=== PATIENT | female | born 1955 | race Caucasian/White ===

== ENCOUNTER → 2020-09-05 13:24 | Outpatient (CLI) | payer OTHER, SELFPAY ==
--- NOTE | ~2020-09-05 | DEXA_ITS ---
Bone Density Report Name: Dulce Mckeon Age: 64 Sex: Female Ethnicity: White Date of : 1955 Indication: postmenopausal; screening for osteoporosis; parental hip fracture; Referring Provider: Alessandra, Diana Iniguez Study: Bone densitometry was performed. Exam Date: September 05, 2020 Accession number: [id number] Bone Density: Region BMD T-score Z-score Classification AP Spine (L1-L4) 0.880 -1.5 0.4 Osteopenia Femoral Neck (Left) 0.617 -2.1 -0.5 Osteopenia Total Hip (Left) 0.776 -1.4 0.0 Osteopenia Femoral Neck (Right) 0.654 -1.8 -0.2 Osteopenia Total Hip (Right) 0.812 -1.1 0.3 Osteopenia Total Hip Mean 0.794 -1.3 0.2 Osteopenia World Health Organization criteria for BMD impression classify patients as: Normal (T-score at or above -1.0), Osteopenia (T-score between -1.0 and -2.5), or Osteoporosis (T-score at or below -2.5). 10-year Fracture Risk(1): Major Osteoporotic Fracture 19% Hip Fracture 2.5% Reported Risk Factors: [place] (), Neck BMD=0.617, BMI=22.7, parental fracture (1) FRAX(R) Version 3.08. Fracture probability calculated for an untreated patient. Fracture probability may be lower if the patient has received treatment. Clinical Information Provided by Patient: Parent has had a hip fracture Has used the following medications: Vitamin D, Calcium, MTV Patient maximum height was 64 Menopause Age: 50 No regular weight bearing exercise Drinks caffeinated beverages Onset of menses at age 11 Number of children 0 Impression: The patient has low bone mass, based on the Left Femoral Neck T-score. The patient has an estimated ten-year risk of hip fracture of 2.5% and an estimated ten-year risk of major fracture of 19%, based on the WHO FRAX algorithm. The patient has risk factors, including: parental hip fracture. Discussion: BONE DENSITY IS LOW AT ONE OR MORE SKELETAL SITES. This patient's lowest T-score is low at one or more skeletal sites. It meets the World Health Organization's (WHO) criteria for ?low bone mass? (T-score between -1.0 and -2.5). The patient's 10-year risk of fracture as calculated by FRAX is less than the threshold where pharmacological therapy is recommended by the National Osteoporosis Foundation (NOF). However, all treatment decisions require clinical judgment and consideration of individual patient factors, including patient preferences, comorbidities, previous drug use, risk factors not captured in the FRAX model (e.g., frailty, falls, vitamin D deficiency, increased bone turnover, interval significant decline in bone density) and possible under or overestimation of fracture risk by FRAX. The patient should follow a healthful lifestyle (good nutrition with adequate calcium and vitamin D, and appropriate weight-bearing exercise). Follow-Up: Consider repeating
--- NOTE | ~2020-09-05 | MM_ITS ---
EXAMINATION: MM screening [facility] BI w khari HISTORY: Screening mammogram TECHNIQUE: Craniocaudal and mediolateral oblique 3-D tomosynthesis images were obtained and synthetic 2-D images were generated. CAD analysis was submitted and interpreted. COMPARISON: 02/28/2019, 02/16/2019, 12/23/2017 BREAST PARENCHYMAL COMPOSITION: There are scattered areas of fibroglandular density. FINDINGS: There is no evidence of suspicious mass, calcification, or architectural distortion to sugg est malignancy in either breast. There has been no suspicious interval change. IMPRESSION: 1. No mammographic evidence of malignancy. 2. Recommend routine screening mammography in one year. BI-RADS Category 1: Negative Reviewed, dictated and finalized at location A.
== END ==
PROVIDERS: PCP Family Medicine Adolescent Medicine; Visit Provider Physician Assistant
DX: Z12.31 Encounter for screening mammogram for malignant neoplasm of breast (principal); Z78.0 Asymptomatic menopausal state; M85.88 Other specified disorders of bone density and structure, other site; M85.852 Other specified disorders of bone density and structure, left thigh; M85.851 Other specified disorders of bone density and structure, right thigh
CPT/HCPCS: 77063; 77067; 77080

== ENCOUNTER → 2021-10-10 12:23 | Outpatient (CLI) | payer OTHER, SELFPAY ==
--- NOTE | ~2021-10-10 | MM_ITS ---
EXAMINATION: MM screening [facility] BI w khari HISTORY: Screening mammogram TECHNIQUE: Craniocaudal and mediolateral oblique 3-D tomosynthesis images were obtained and synthetic 2-D images were generated. CAD analysis was submitted and interpreted. COMPARISON: 09/05/2020 bilateral digital screening mammogram 03/03/2019 diagnostic right mammogram 02/16/2019, 12/23/2017 bilateral screening mammogram examinations BREAST PARENCHYMAL COMPOSITION: There are scattered areas of fibroglandular density. FINDINGS: There is no evidence of suspicious mass, calcification, or architectural distortion to sugg est malignancy in either breast. There has been no suspicious interval change. IMPRESSION: 1. No mammographic evidence of malignancy. 2. Recommend routine screening mammography in one year. BI-RADS Category 1: Negative Reviewed, dictated and finalized at location A. 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
== END ==
PROVIDERS: PCP Family Medicine Adolescent Medicine; Visit Provider Family Medicine Adolescent Medicine
DX: Z12.31 Encounter for screening mammogram for malignant neoplasm of breast (principal)
CPT/HCPCS: 77063; 77067

== ENCOUNTER 2022-02-01 13:29 | Outpatient (CLI) | payer OTHER, SELFPAY ==
--- NOTE | ~2022-02-01 | XR_ITS ---
EXAMINATION: XR foot LT standing 2V EXAM DATE: 02/01/2022 14:04 INDICATION: M05.79 - Rheumatoid arthritis with rheumatoid factor of m... TECHNIQUE: Frontal and lateral projections of the left foot There is no prior study for comparison . FINDINGS: There is mild to moderate left 1st metatarsophalangeal primary osteoarthritis. There are no bony erosions identified. Some periarticular osteopenia symmetric to contralateral side, which can b e an early finding of rheumatoid arthritis. There are no acute fractures or dislocations identified. There is no subcutaneous gas. The soft tissue is unremarkable. There are no radiopaque foreign ray dies. IMPRESSION: 1. Mild to moderate left 1st MTP osteoarthritis. 2. Periarticular osteopenia Reviewed, dictated and finalized at location G.
--- NOTE | ~2022-02-01 | XR_ITS ---
XR hand BI arthritis min 3V DATE: 02/01/2022 14:04 INDICATION: Rheumatoid arthritis TECHNIQUE: 4 views of each hand COMPARISON: None FINDINGS: There is polyarticular osteoarthritis involving both hands including first carpometacarpal joints, second metacarpophalangeal joints and multiple interphalangeal joints of the hands. No erosive change or chondrocalcinosis is evident. No fracture, dislocation, periosteal reaction or b one destruction. IMPRESSION: Polyarticular osteoarthritis of the hands Reviewed, dictated and finalized at location A.
--- NOTE | ~2022-02-01 | XR_ITS ---
EXAMINATION: XR foot RT standing 2V EXAM DATE: 02/01/2022 14:04 INDICATION: M05.79 - Rheumatoid arthritis with rheumatoid factor of m... TECHNIQUE: Frontal and lateral projections of the right foot standing. There is no prior study for comparison. FINDINGS: Some periarticular osteopenia, which can be an early finding of rheumatoid arthritis. There are no bony erosions identified. There are no acute right foot fractures or dislocations identified. There is no subcutaneous gas. The soft tissue is unremarkable. There are no radiopaque foreign b odies. Mild 1st metatarsophalangeal joint primary osteoarthritis. IMPRESSION: 1. Mild right 1st MTP osteoarthritis. 2. Periarticular osteopenia. Reviewed, dictated and finalized at location G.
== END 2022-02-01 13:30 | disposition home or self-care (01) ==
LOC: ANHIMG 13:33
PROVIDERS: PCP Family Medicine Adolescent Medicine; Visit Provider Internal Medicine
DX: M05.79 Rheumatoid arthritis with rheumatoid factor of multiple sites without organ or systems involvement (principal); M19.041 Primary osteoarthritis, right hand; M19.042 Primary osteoarthritis, left hand; M19.072 Primary osteoarthritis, left ankle and foot; M85.872 Other specified disorders of bone density and structure, left ankle and foot; M19.071 Primary osteoarthritis, right ankle and foot; M85.871 Other specified disorders of bone density and structure, right ankle and foot
CPT/HCPCS: 73130; 73620

== ENCOUNTER 2022-12-19 09:30 | Outpatient (CLI) | payer OTHER, SELFPAY ==
--- NOTE | ~2022-12-19 | US_ITS ---
Limited Abdominal Sonogram: Real-time sonographic imaging of the right upper quadrant was performed. Clinical History: Abnormal LFTs Findings: The liver appears normal with no evidence of mass lesion or bile duct dilatation. Main por bridgett vein demonstrates normal direction of flow. The gallbladder is well distended, and indicated 2.7 cm shadowing gallstone. No gallbladder wall thickening. The common bile duct measures 4 mm. The visu alized pancreas, aorta, and IVC are unremarkable. Impression: Cholelithiasis, as detailed above. Reviewed, dictated and finalized at location M. 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
== END 2022-12-19 09:31 | disposition home or self-care (01) ==
PROVIDERS: PCP Family Medicine Adolescent Medicine; Visit Provider Physician Assistant
DX: R74.01 Elevation of levels of liver transaminase levels (principal); K80.20 Calculus of gallbladder without cholecystitis without obstruction
CPT/HCPCS: 76705

== ENCOUNTER → 2023-01-07 13:12 | Outpatient (CLI) | payer OTHER, SELFPAY ==
--- NOTE | ~2023-01-07 | MM_ITS ---
EXAMINATION: MM screening [facility] BI w khari HISTORY: Screening mammogram TECHNIQUE: Craniocaudal and mediolateral oblique 3-D tomosynthesis images were obtained and synthetic 2-D images were generated. CAD analysis was submitted and interpreted. COMPARISON: 10/10/2021, bilateral screening mammogram examinations BREAST PARENCHYMAL COMPOSITION: There are scattered areas of fibroglandular density. FINDINGS: Occasional bilateral benign calcifications. There is no evidence of suspicious mass, calcif ication, or architectural distortion to suggest malignancy in either breast. There has been no suspic ious interval change. IMPRESSION: 1. No mammographic evidence of malignancy. 2. Recommend routine screening mammography in one year. BI-RADS Category 1: Negative Reviewed, dictated and finalized at location A. ULATION MAN
== END ==
PROVIDERS: PCP Family Medicine Adolescent Medicine; Visit Provider Family Medicine Adolescent Medicine
DX: Z12.31 Encounter for screening mammogram for malignant neoplasm of breast (principal)
CPT/HCPCS: 77063; 77067

== ENCOUNTER 2023-10-22 14:30 | Outpatient (RCR) | payer OTHER, SELFPAY ==
[2023-09-12 14:33] VITALS: BMI 21.0
[2023-09-12 15:23] VITALS: BMI 21.0
[2023-10-22 14:31] VITALS: BMI 18.3; BMI 21.0
== END 2023-11-25 12:39 | disposition home or self-care (01) ==
LOC: ANHDMC 14:30
PROVIDERS: PCP Family Medicine Adolescent Medicine; Visit Provider Family Medicine Adolescent Medicine
DX: E11.65 Type 2 diabetes mellitus with hyperglycemia (principal); Z71.89 Other specified counseling; Z71.3 Dietary counseling and surveillance
CPT/HCPCS: 97802; 97803; G0108; G0109

== ENCOUNTER 2023-12-26 14:36 | Outpatient (RCR) | payer OTHER, SELFPAY | END 2023-12-26 16:54 | disposition home or self-care (01) | LOC: ANHDMC 14:36 | PROVIDERS: PCP Family Medicine Adolescent Medicine; Visit Provider Family Medicine Adolescent Medicine | DX: E11.65 Type 2 diabetes mellitus with hyperglycemia (principal); Z71.89 Other specified counseling | CPT/HCPCS: G0109 ==

== ENCOUNTER 2024-03-12 12:35 | Outpatient (CLI) | payer OTHER, SELFPAY ==
--- NOTE | ~2024-03-12 | MM_ITS ---
EXAMINATION: MM screening [facility] BI w khari HISTORY: Screening mammogram TECHNIQUE: Craniocaudal and mediolateral oblique 3-D tomosynthesis images were obtained and synthetic 2-D images were generated. CAD analysis was submitted and interpreted. COMPARISON: January 07, 2023, October 10, 2021 bilateral screening mammogram examinations BREAST PARENCHYMAL COMPOSITION: There are scattered areas of fibroglandular density. FINDINGS: There is no evidence of suspicious mass, calcification, or architectural distortion to sugg est malignancy in either breast. There has been no suspicious interval change. IMPRESSION: 1. No mammographic evidence of malignancy. 2. Recommend routine screening mammography in one year. BI-RADS Category 1: Negative Reviewed, dictated and finalized at location A.
--- NOTE | ~2024-03-12 | DEXA_ITS ---
Bone Density Report Name: BARRON ACHARYA Age: 68 Sex: Female Ethnicity: White Date of : 1955 Indication: osteopenia; parental hip fracture; height loss; rheumatoid arthritis; postmenopausal Referring Provider: ROSHNI HERCULES Study: Bone densitometry was performed. Exam Date: March 12, 2024 Accession number: [id number] Bone Density: Region BMD T-score Z-score Classification AP Spine (L1-L4) 0.814 -2.1 0.0 Osteopenia Femoral Neck (Left) 0.555 -2.6 -0.8 Osteoporosis Total Hip (Left) 0.673 -2.2 -0.7 Osteopenia Femoral Neck (Right) 0.664 -1.7 0.1 Osteopenia Total Hip (Right) 0.715 -1.9 -0.3 Osteopenia Total Hip Mean 0.694 -2.1 -0.5 Osteopenia World Health Organization criteria for BMD impression classify patients as: Normal (T-score at or above -1.0), Osteopenia (T-score between -1.0 and -2.5), or Osteoporosis (T-score at or below -2.5). 10-year Fracture Risk: FRAX not reported because: Some T-score for Spine Total or Hip Total or Femoral Neck at or below -2.5 Previous Exams: Region Exam Age BMD T-score BMD Change BMD Change Date g/cm2 vs Baseline vs Previous AP Spine(L1-L4) 03/12/2024 68 0.814 -2.1 -0.066* -0.066* 09/05/2020 64 0.880 -1.5 Total Hip(Left) 03/12/2024 68 0.673 -2.2 -0.103* -0.103* 09/05/2020 64 0.776 -1.4 Total Hip(Right) 03/12/2024 68 0.715 -1.9 -0.097* -0.097* 09/05/2020 64 0.812 -1.1 *Denotes significance at 95% confidence level, LSC for AP Spine = 0.022 g/cm2, LSC for Total Hip = 0.027 g/cm2 Clinical Information Provided by Patient: Parent has had a hip fracture Has rheumatoid arthritis Has used the following medications: Vitamin D, Calcium, MTV Patient maximum height was 64 Menopause Age: 50 Drinks caffeinated beverages Onset of menses at age 11 Number of children 0 Impression: The patient has osteoporosis, based on the Left Femoral Neck T-score. The patient has risk factors, including: parental hip fracture. The BMD for the AP Spine(L1-L4) decreased, changing by -0.066 since the last DXA exam. The BMD for the Total Hip(Left) decreased, changing by -0.103 since the last DXA exam. The BMD for the Total Hip(Right) decreased, changing by -0.097 since the last DXA exam. Discussion: INCREASED RISK OF FRACTURE. BONE DENSITY IS UNDESIRABLY LOW AT ONE OR MORE SKELETAL SITES, CONSISTENT WITH POSTMENOPAUSAL OSTEOPOROSIS. This patient's lowest T-score meets the World He
== END 2024-03-12 12:36 ==
LOC: MICIMG 12:36
PROVIDERS: PCP Family Medicine Adolescent Medicine; Visit Provider Family Medicine Adolescent Medicine
DX: Z12.31 Encounter for screening mammogram for malignant neoplasm of breast (principal); M85.88 Other specified disorders of bone density and structure, other site; M85.852 Other specified disorders of bone density and structure, left thigh; M85.851 Other specified disorders of bone density and structure, right thigh; M81.0 Age-related osteoporosis without current pathological fracture
CPT/HCPCS: 77063; 77067; 77080

== ENCOUNTER 2025-01-12 14:15 | Outpatient (RCR) | payer OTHER, MEDICAID, SELFPAY ==
[2024-10-21 13:30] VITALS: BMI 22.6
== END 2025-01-13 11:45 | disposition home or self-care (01) ==
LOC: ANHDMC 14:15
PROVIDERS: PCP Family Medicine Adolescent Medicine; Visit Provider Nurse Practitioner Family
DX: E11.9 Type 2 diabetes mellitus without complications (principal); Z71.89 Other specified counseling
CPT/HCPCS: 97802; G0108

== ENCOUNTER 2025-03-29 11:43 | Outpatient (CLI) | payer OTHER, MEDICAID, SELFPAY ==
--- NOTE | ~2025-03-29 | MM_ITS ---
EXAMINATION: MM screening [facility] BI w khari HISTORY: Screening TECHNIQUE: Craniocaudal and mediolateral oblique 3-D tomosynthesis images were obtained and synthetic 2-D images were generated. CAD analysis was submitted and interpreted. COMPARISON: Comparison to multiple prior studies sequentially, with oldest reviewed study dated 2018. BREAST PARENCHYMAL COMPOSITION: Not dense: There are scattered areas of fibroglandular density. FINDINGS: There is no evidence of suspicious mass, calcification, or architectural distortion to sugg est malignancy in either breast. There has been no suspicious interval change. IMPRESSION: 1. No mammographic evidence of malignancy. 2. Recommend routine screening mammography in one year. BI-RADS Category 1: Negative Reviewed, dictated and finalized at location B.
== END 2025-03-29 11:44 | disposition home or self-care (01) ==
LOC: MICIMG 11:44
PROVIDERS: PCP Family Medicine Adolescent Medicine; Visit Provider Family Medicine Adolescent Medicine
DX: Z12.31 Encounter for screening mammogram for malignant neoplasm of breast (principal)
CPT/HCPCS: 77063; 77067

== ENCOUNTER 2025-04-01 14:20 | Outpatient (RCR) | payer OTHER, MEDICAID, SELFPAY | END 2025-06-28 10:25 | disposition home or self-care (01) | LOC: ANHDMC 14:20 | PROVIDERS: PCP Family Medicine Adolescent Medicine; Visit Provider Nurse Practitioner Family | DX: E11.9 Type 2 diabetes mellitus without complications (principal); E78.5 Hyperlipidemia, unspecified; Z71.89 Other specified counseling | CPT/HCPCS: G0108 ==

== ENCOUNTER 2025-07-15 14:19 | Outpatient (RCR) | payer OTHER, MEDICAID, SELFPAY | END 2025-10-11 10:45 | disposition home or self-care (01) | LOC: ANHDMC 14:19 | PROVIDERS: PCP Family Medicine Adolescent Medicine; Visit Provider Nurse Practitioner Family | DX: E11.9 Type 2 diabetes mellitus without complications (principal); Z71.89 Other specified counseling; Z71.3 Dietary counseling and surveillance | CPT/HCPCS: G0108 ==

== ENCOUNTER 2025-10-11 12:25 | Emergency (ER) | payer OTHER, MEDICAID, SELFPAY ==
--- NOTE | ~2025-10-11 | US_ITS ---
US abdomen limited INDICATION: Possible cholecystitis. PROCEDURE: Realtime right upper abdominal ultrasound. COMPARISON: No prior studies for comparison. FINDINGS: The pancreas is normal without focal mass or pancreatic ductal dilation. Liver echotexture is normal without focal mass or intrahepatic biliary dilatation. There is normal directional flow in the portal vein. There are gallstones. Mild gallbladder wall thickening. No pericholecystic fluid. Common bile duct measures 4 mm. No sonographic Elkins's sign. IMPRESSION: 1: Cholelithiasis with mild gallbladder wall thickening. Consider cholecystitis in the appropriate clinical setting. Reviewed, dictated and finalized at location I. SERGEANT
--- NOTE | ~2025-10-11 | CT_ITS ---
EXAMINATION: CT abdomen pelvis w con DATE: 10/11/2025 14:09 INDICATION: Upper abdomen pain with bloating. TECHNIQUE: Computed tomography (CT) of the abdomen and pelvis was performed with intravenous contrast. The dose-length product was 253.89 mGy-cm. Automated exposure control and iterative reconstruction technique were employed. COMPARISON: No prior studies for comparison. FINDINGS: Lung bases are unremarkable. Heart size normal. No significant pleural or pericardial effusion. Small hiatal hernia. Gallstones are present. Mild gallbladder wall thickening. The liver, spleen, pancreas, adrenal glands are unremarkable. There are nonobstructing bilateral renal stones. No significant hydronephrosis. No significant vascular abnormality. Nonobstructive bowel gas pattern. Normal appendix. No free air or free fluid. There is levoscoliosis. Moderate-severe lumbar spondylosis most advanced at L4-5. IMPRESSION: 1. Cholelithiasis with mild gallbladder wall thickening. Consider cholecystitis in the appropriate clinical setting. 2: Nonobstructing bilateral nephrolithiasis. Reviewed, dictated and finalized at location I. GENERALIST
[2025-10-11 12:29] VITALS: BP 193/79; PULSE 87; RESP 16; TEMP 36.4; O2SAT 100
--- OUTSIDE RECORDS SUMMARY | 2025-10-11 13:36 | XMS_ITS | Clinical Summary ---
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 Name Role Phone Unavailable Primary Care Provider Unavailabl e Social History Tobacco Use Types Packs/Day Years Used Date Smoking Tobacco: Never Assessed Comments Unknown Sex and Gender Information Value Date Recorded Sex Assigned at Not on file Legal Sex Female 7:42 PM CDT Gender Identity Not on file Sexual Orientation Not on file Plan of Treatment Health Maintenance Due Date Last Done Comments Colorectal Cancer Screening Colonoscopy (10 Years) 1955 Hepatitis C 1971 DTaP, Tdap and Td Vaccines ( 1 - Tdap) 1972 Mammogram Screening 1993 Pneumococcal Vaccine: 50+ Ye ars (1 of 1 - PCV) 2003 Zoster Vaccines (1 of 2) 2003 Dexa Scan (General) 2018 COVID-19 Vaccine ( - 2024-2 6 season) 2025 Influenza Adult (#1) 2025 RSV Immunization or 60+ Years (1 - 1-dose 75+ series) 2028 Hepatitis A Vaccines Aged Out No long er eligible based on patient's age to complete this topic Meningococcal B Vaccine Aged Out No l onger eligible based on patient's age to complete this topic Meningococcal Vaccine Aged Out No chandrakant christina eligible based on patient's age to complete this topic RSV Immunizations Under 20 Months Aged Out No longer eligible based on patient's age to complete this topic
[2025-10-11 13:40] LABS: Hematocrit 44.9 % (37.0-47.0); Hemoglobin 14.8 g/dL (12.0-15.0); Immature Granulocyte Percent A 0.4 % (0-0.5); Lymphocytes Absolute Auto 1.31 K/mm3 (0.9-3.2); Mean Corpuscular HGB Conc 33.0 g/dl (32-36); Mean Corpuscular Hemoglobin 29.9 pg (26-34); Mean Corpuscular Volume 90.7 fl (80-100); Nucleated Red Blood Cells Absolute Auto 0.000 K/mm3 (0.0-0.012); Nucleated Red Blood Cells Perc 0.0 % (0.0-0.2); Platelet Count Result 238 k/mm3 (150-375); Red Blood Count 4.95 M/mm3 (4.2-5.4); White Blood Count 9.9 K/mm3 (4.5-10.0)
--- NOTE | 2025-10-11 13:41 | ED.ABDPAIN ---
HPI - Abdominal Pain General Chief Complaint: Abdominal Pain Stated Complaint: new insulin 09/17, abd pain Time Seen by Provider: 10/11/25 13:19 Source: patient Mode of arrival: ambulatory Limitations: no limitations History of Present Illness HPI narrative: Patient presents with report of intermittent epigastric abdominal pain and nausea. She had been experiencing bloating and pain when she was on Rybelsus and Jardiance and her retail business analyst Dr Jaramillo had discontinued these medications and started her on insulin 09/17 , Lantus and Aspart. She continues to feel like she just ate and having these issues and is concerned they might be due to her insulin. No previous abdominal surgery. No previous diagnosis of HTN, had been felt to have 'white coat syndrome previously but then had normal BP readings at 2 most recent health care visits. Her PCP had been Dr Victor, now Dr Ortiz. She has had a headache. She has an appointmetn with Dr Jaramillo 10/27. She continues to pass a little flatus. Not on anticoagulation, only 81mg ASA. LBM was this morning, no diarrhea, constipation, bloody stools. JAMSHID was breakfast. No fevers though feels chilled now. Related Data Home Medications ?Medication ?Instructions ?Recorded ?Confirmed ?Last Taken ?Type aspirin 81 mg tablet,delayed 81 mg PO DAILY 08/10/21 10/06/25 Unknown History release calcium carbonate (Tums) 200 mg PO BID 08/10/21 10/06/25 Unknown History glucosam 750 mg-chondroi 100 tablet PO 08/10/21 10/06/25 Unknown History mg-hyalur 1.65 mg-CF borate 108 mg tablet ([facility]) loratadine 10 mg tablet (Claritin) 10 mg PO DAILY 08/10/21 10/06/25 Unknown History multivitamin (Daily Multi-Vitamin 1 tablet PO DAILY 08/10/21 10/06/25 Unknown History tablet) omega-3 fatty acids 1,000 mg 1,000 mg PO DAILY 08/10/21 10/06/25 Unknown History capsule (Fish Oil Concentrate) vitamin E 200 unit capsule 200 unit PO DAILY 08/10/21 10/06/25 Unknown History calcium 315 mg (as 1 tablet PO DAILY 01/07/24 10/06/25 Unknown History citrate)-vitamin D3 6.25 mcg (250 unit) tablet (Citracal + Vitamin D Maximum) atorvastatin 20 mg tablet (Lipitor) 20 mg PO QHS 10/06/25 10/06/25 Unknown History Allergies Allergy/AdvReac Type Severity Reaction Status Date / Time amitriptyline Allergy Unknown Unknown Verified 10/06/25 13:16 baclofen Allergy Unknown Unknown Verified 10/06/25 13:16 indomethacin Allergy Unknown Unknown Verified 10/06/25 13:16 phenylephrine Allergy Unknown Unknown Verified 10/06/25 13:16 phenytoin Allergy Unknown Unknown Verified 10/06/25 13:16 pseudoephedrine Allergy Unknown Unknown Verified 10/06/25 13:16 [id number] Reductase AdvReac Unknown Muscle Pain Verified 10/06/25 13:16 Inhibitor PMFSH Past Medical History Medical History Type 2 diabetes mellitus treated with insulin History of basal cell cancer Type 2 diabetes mellitus without complications Bilateral hand pain Rheumatoid arthritis with rheumatoid factor of multiple sites without organ or systems involvement H/O gastroesophageal reflux (GERD) Arthritis Allergies Surgical History Surgical History History of thyroid surgery History of cataract surgery H/O breast biopsy History of back surgery History of facial surgery Family History Family History Other Family history of cardiovascular disease Family history of rheumatoid arthritis Family history of seizure disorder Social History Social History Smoking status: Never smoker Alcohol intake: never Lack of Transportation: No Lack of Food: Never True Current Housing: I Have Housing Concerned About Future Housing: No Difficulty Paying Gas/Electric Bills: No Difficulty Paying for Meds: No Currently Unemployed: No Education: High School Diploma/GED Difficulty w/ Childcare or Family Care: No Spiritual care concerns: No Exam Narrative: GENERAL: Well-appearing, well-nourished, and in no acute distress. HEAD: Normocephalic, atraumatic. EYES: Non injected, non icteric ENT: Nares clear, no rhinorrhea or epistaxis. Gross auditory acuity intact. NECK: Supple. No meningismus. CHEST: Speaking in full sentences. No respiratory distress. HEART: Regular rate and rhythm. . ABDOMEN: Soft, nondistended. No tenderness to palpation throughout. No rigidity or guarding. Not peritoneal EXTREMITIES: Normal range of motion. No lower extremity edema. SKIN: Warm, dry, no rash. NEURO: No focal deficits. Alert and oriented. Answering questions. Following commands. Normal speech without aphasia or dysarthria. PSYCH: Normal mood and affect. Course Vital Signs Vital signs: Vital Signs Temperature 97.6 F 10/11/25 12:29 Pulse Rate 87 10/11/25 12: Respiratory Rate 16 10/11/25 12:29 Blood Pressure 193/79 H 10/11/25 12:29 Pulse Oximetry 100 10/11/25 12:29 Oxygen Delivery Room Air 10/11/25 12:29 Temperature 97.6 F 10/11/25 12:29 Pulse Rate 82 10/11/25 19:29 Respiratory Rate 20 10/11/25 19:29 Blood Pressure 150/64 H 10/11/25 19:29 Pulse Oximetry 97 10/11/25 19:29 Oxygen Delivery Room Air 10/11/25 12:29 MDM - Abdominal Pain MDM Narrative Medical decision making narrative: 69 yo female presents with epigastric abdominal pain and bloating, feeling like she just ate. She believes this is due to insulin that she just started (Lantus and Aspart) 09/17 prescribed by her retail business analyst. However, of note, she had been experiencing similar symptoms while on Rybelsus and Jardiance prior to that which is why they were discontinued. Has upcoming appointment to follow up with retail business analyst 10/27, Dr Jaramillo. Also has a PCP, Dr Ortiz (previously Dr Victor). In the emergency department she is afebrile with vital signs notable for hypertension. Patient denies history of diagnosis of hypertension as she states that she has had white coat hypertension previously and then had been normal subsequently at recent visits, 120s/80s. Still elevated on repeat assessment. CBC without vitor leukocytosis anemia or thrombocytopenia although there is neutrophilia. Hyperglycemia without anion gap acidosis. Sodium corrects to 136/137 in the setting of hyperglycemia. Lipase normal. Microscopic hematuria on UA as well trace glucosuria. Based on CT, US RUQ ordered. LFTs ok. Patient reports weakness. She thinks it might be due to her not eating. EKG ordered. Morphine ordered but patient declined. She does feel like the bloating is improved after ondansetron and simethicone. Given equivocal CT and US, Discussed with Dr Escobar who recommends she follow up with him outpatient in clinic either tomorrow or the next day, to call for an appointment. No need for antibiotics since presentation more consistent with biliary colic. Discharged with Rx for simethicone and Zofran. Differential Diagnosis Differential diagnosis: Likely abdominal pain, constipation, diverticulitis, pancreatitis, small bowel obstruction and other (gastritis; biliary pathology; GERD; medication side effect; gastroparesis) Lab Data Attestation: I reviewed the patient's lab results. 10/11/25 13:27 10/11/25 13:27 Labs: Lab Results 10/11/25 10/11/25 10/11/25 Range/Units 13:27 13:30 16:31 WBC 9.9 (4.5-10.0) K/mm3 RBC 4.95 (4.2-5.4) M/mm3 Hgb 14.8 (12.0-15.0) g/dL Hct 44.9 (37.0-47.0) % MCV 90.7 (80-100) fl MCH 29.9 (26-34) pg MCHC 33.0 (32-36) g/dl RDW 11.9 (11.5-14.5) % Plt Count 238 (150-375) k/mm3 MPV 9.7 (7.4-10.4) fl Immature Gran % (Auto) 0.4 (0-0.5) % Neut % (Auto) 80.6 H (45.5-73.1) % Lymph % (Auto) 13.2 L (18.3-44.2) % Cobb % (Auto) 5.3 (2.6-8.5) % Eos % (Auto) 0.1 (0-4.4) % Baso % (Auto) 0.4 (0.2-1.2) % Lymph # (Auto) 1.31 (0.9-3.2) K/mm3 Cobb # (Auto) 0.5 (0.1-0.6) K/mm3 Eos # (Auto) 0.0 (0-0.3) K/mm3 Baso # (Auto) 0.0 (0.0-0.1) K/mm3 Abs Immat Gran (auto) 0.04 H (0.00-0.031) K/mm3 Absolute Neuts (auto) 8.0 H (1.3-6.7) K/mm3 Absolute Nucleated RBC 0.000 (0.0-0.012) K/mm3 Nucleated RBC % 0.0 (0.0-0.2) % Sodium 135 L (137-145) mmol/L Potassium 4.1 (3.4-5.0) mmol/L Chloride 99 (98-107) mmol/L Carbon Dioxide 32 H (22-30) mmol/L Anion Gap 4 (4-12) mmol/L BUN 18 H (7-17) mg/dL Creatinine 0.79 (0.7-1.0) mg/dL Estim Creat Clear Calc 45 ml/min Estimated GFR > 60 (59 - ) Glucose 187 H (65-110) mg/dL POC Capillary Glucose 141 H (65-105) mg/dl Calcium 10.0 (8.4-10.2) mg/dL Total Bilirubin 0.5 (0.2-1.3) mg/dL AST 24 (14-36) U/L ALT 29 (6-35) U/L Alkaline Phosphatase 77 (38-126) U/L Total Protein 8.0 (6.3-8.2) g/dL Albumin 4.7 (3.5-5.1) g/dL Lipase 219 (23-300) U/L Urine Color Yellow (Yellow) Urine Appearance Clear (Clear) Urine pH 7.5 (5.0-9.0) Ur Specific [place] 1.008 (1.001-1.035) Urine Protein Negative (Negative) mg/dL Urine Glucose (UA) Trace H (Negative) mg/dL Urine Ketones Negative (Negative) mg/dL Ur Blood (Man) Trace (Negative) Urine Nitrate Negative (Negative) Urine Bilirubin Negative (Negative) Urine Urobilinogen 0.2 (<2.0) mg/dL Leukocyte Esterase Rfl Negative (Negative) ANA/UL Urine RBC 3-5 H (0-2) /hpf Urine WBC 0-5 (0-3) /hpf Ur Squamous Epith Cells None seen (Few) /hpf Urine Bacteria None seen /hpf Urine Casts 0-2 Imaging Data Radiologist's impression: ITS Impressions Abdomen/Pelvis CT 10/11/25 14:30 IMPRESSION: 1. Cholelithiasis with mild gallbladder wall thickening. Consider cholecystitis in the appropriate clinical setting. 2: Nonobstructing bilateral nephrolithiasis. Abdomen Ultrasound 10/11/25 15:32 IMPRESSION: 1: Cholelithiasis with mild gallbladder wall thickening. Consider cholecystitis in the appropriate clinical setting. ECG Data EKG #1: Attestation: I personally reviewed and interpreted this ECG as follows: ECG completion date: 10/11/25 ECG completion time: 18:08 Interpretation: Normal sinus rhythm at a rate of 69 beats per minute. IA interval 148. QRS 89. QT/QTC 372/391. Left axis deviation (QRS is positive with dominant R wave in Lead I; QRS is negative with dominant S wave in leads III, and aVF as well as to a lesser extent II). T-wave inversion in 3 but upright in 2 and upright/ mild flattening in AVF. No other T-wave inversions. Discharge Plan Discharge Clinical Impression: Epigastric abdominal pain, Abdominal bloating, Hyperglycemia due to type 2 diabetes mellitus, Microscopic hematuria, Bilateral hydronephrosis, Cholelithiasis, Thickening of wall of gallbladder, Biliary colic Patient Disposition: Home Condition: Stable Instructions: Antibiotic Form, Biliary Colic (ED), Gallstones (ED), Managing Diabetes During Sick Days (ED), Gas and Bloating (ED), Diabetic Hyperglycemia (ED), Epigastric Pain (ED) Additional Instructions: Continue taking your medications as prescribed. The simethicone may help with abdominal bloating and the ondansetron/Zofran may help with nausea and vomiting. The surgeon listed below would like you to follow-up in clinic. Call tomorrow morning for an appointment. Return to the ED with new/worsening /unmanaged symptoms. Patient Language: Burmese Prescriptions: New ondansetron 4 mg tablet,disintegrating 4 mg PO Q8H PRN (Reason: nausea and vomiting) Qty: 7 0RF simethicone 125 mg capsule 125 mg PO DAILY PRN (Reason: abdominal distention) Qty: 14 0RF No Action insulin glargine [Lantus Solostar U-100 Insulin] 100 unit/mL (3 mL) insulin pen 15 unit subcut QAM 90 Days Qty: 15 2RF (DME) FreeStyle Bernard 3 Plus Sensor Device See Rx Instructions .Route Qty: 6 2RF Rx Instructions: As directed (DME) FreeStyle Bernard 3 Cassandra Misc See Rx Instructions .Route Qty: 1 0RF Rx Instructions: As directed (DME) pen needle, diabetic 32 gauge x needle See Rx Instructions .ROUTE .MEDSUPPLY Qty: 400 1RF Rx Instructions: Use four times daily calcium citrate-vitamin D3 [Citracal + D Maximum] 315 mg-6.25 mcg (250 unit) tablet 1 tablet PO DAILY (DME) lancets [OneTouch UltraSoft 2 Lancet] 30 gauge misc See Rx Instructions .Route Qty: 100 3RF Rx Instructions: Use to check BS once daily atorvastatin [Lipitor] 20 mg tablet 20 mg PO QHS aspirin 81 mg tablet,delayed release (DR/EC) 81 mg PO DAILY vitamin E 200 unit capsule 200 unit PO DAILY multivitamin [Daily Multi-Vitamin] Tablet 1 tablet PO DAILY calcium carbonate [Tums] 200 mg calcium (500 mg) tablet,chewable 200 mg PO BID [facility] 750 mg-100 mg- 1.65 mg-108 mg tablet PO omega-3 fatty acids [Fish Oil Concentrate] 1,000 mg capsule 1,000 mg PO DAILY loratadine [Claritin] 10 mg tablet 10 mg PO DAILY (DME) blood glucose control, normal [OneTouch Ultra Control] Solution See Rx Instructions .Route Qty: 1 0RF Rx Instructions: As directed sulindac 200 mg tablet See Rx Instructions .ROUTE .COMPLEX Qty: 60 5RF Dose Instruction: TAKE 1 TABLET BY MOUTH TWICE A DAY Rx Instructions: TAKE 1 TABLET BY MOUTH TWICE A DAY ibandronate 150 mg tablet See Rx Instructions .ROUTE .COMPLEX Qty: 3 5RF Dose Instruction: TAKE 1 TABLET BY MOUTH ONCE MONTHLY Rx Instructions: TAKE 1 TABLET BY MOUTH ONCE MONTHLY (DME) lancets [OneTouch Delica Plus Lancet] 33 gauge misc See Rx Instructions .Route Qty: 100 0RF Rx Instructions: once daily omeprazole 20 mg capsule,delayed release(DR/EC) 20 mg PO DAILY Qty: 90 2RF (DME) OneTouch Verio test strips Strip See Rx Instructions .Route Qty: 100 1RF Rx Instructions: use to test BS twice daily insulin aspart U-100 [Novolog FlexPen U-100 Insulin] 100 unit/mL (3 mL) insulin pen 4 unit subcut TID 30 Days Qty: 6 0RF Follow-up/Referrals: Monica Escobar MD [Physician, General Surgery] Magdalena Ortiz DO [Primary Care Provider, Family Practice] Stand Alone Forms: Work/School Release IP Time of Disposition: 18:26
[2025-10-11 13:45] LABS: Add Urine Microscopic? YES; Appearance Urine Clear (Clear); Glucose Urine UA Trace mg/dL (Negative); Leukocyte Esterase Ur Negative LEU/UL (Negative); Nitrate Urine Negative (Negative); Non Pathogenic Casts 0-2; Specific Grav Ur 1.008 (1.001-1.035)
[2025-10-11 13:49] LABS: Alanine Aminotransferase 29 U/L (6-35); Albumin Level 4.7 g/dL (3.5-5.1); Alkaline Phosphatase 77 U/L (38-126); Anion Gap 4 mmol/L (4-12); Aspartate Amino Transferase 24 U/L (14-36); Bilirubin,Total 0.5 mg/dL (0.2-1.3); Blood Urea Nitrogen 18 mg/dL (7-17); Calcium 10.0 mg/dL (8.4-10.2); Carbon Dioxide 32 mmol/L (22-30); Chloride 99 mmol/L (98-107); Estimated CRCL calculation 45 ml/min; Estimated Glomerular Filt Rate > 60; Glucose 187 mg/dL (65-110); Lipase 219 U/L (23-300); Potassium 4.1 mmol/L (3.4-5.0); Sodium 135 mmol/L (137-145); Total Protein 8.0 g/dL (6.3-8.2)
[2025-10-11] MEDS: SIMETHICONE 125 MG CHEW TAB PO (14:19)
[2025-10-11] MEDS: ONDANSETRON INJ 4 MG/2 ML VIAL IV PUSH (14:19)
[2025-10-11 14:20] VITALS: BP 190/89; PULSE 84; RESP 20; O2SAT 100
--- OUTSIDE RECORDS SUMMARY | 2025-10-11 14:47 | XMS_ITS | Clinical Summary ---
Author Organization [facility] Address [address] [place] [id number] Care Team Providers Care Housing Inspector Name Role Phone Unavailable Primary Care Provider [...]
--- NOTE | 2025-10-11 17:53 | ECG_ITS ---
Test Date: 2025-10-11 18:08:07 Measurements Intervals [place] Rate: 69 P: 25 NM: 148 QRS: -31 QRSD: 89 T: 8 QT: 372 QTc: 399 Interpretive Statements SINUS RHYTHM LEFT AXIS DEVIATION DELAYED PRECORDIAL R/S TRANSITION BORDERLINE T WAVE ABNORMALITY- INFERIOR LEADS BASELINE ARTIFACT- I, III, AVR, AVL BORDERLINE ECG No previous ECG available for comparison Electronically Signed On 10-11-2025 18:17:24 WELL TREATMENT OFFSIDER by Alok Molina D.O.
[2025-10-11 18:10] VITALS: BP 168/73; PULSE 70; RESP 18; O2SAT 97
[2025-10-11 19:29] VITALS: BP 150/64; PULSE 82; RESP 20; O2SAT 97
== END 2025-10-11 19:30 | disposition home or self-care (01) ==
PROVIDERS: Emergency Medicine; Emergency Provider Student in an Organized Health Care Education/Training Program; PCP Family Medicine
DX: R10.13 Epigastric pain (principal); R14.0 Abdominal distension (gaseous); E11.65 Type 2 diabetes mellitus with hyperglycemia; R31.29 Other microscopic hematuria; N13.30 Unspecified hydronephrosis; K80.20 Calculus of gallbladder without cholecystitis without obstruction; Z79.4 Long term (current) use of insulin; K21.9 Gastro-esophageal reflux disease without esophagitis; M06.9 Rheumatoid arthritis, unspecified
CPT/HCPCS: 36415; 74177; 76705; 80053; 81001; 82948; 83690; 85025; 93005; 96361; 96374; 99284; A9270; J2405; Q9967

== ENCOUNTER 2025-11-01 03:30 | Day surgery (SDC) | payer OTHER, MEDICAID, SELFPAY ==
--- NOTE | 2025-10-25 08:18 | PC.NURSE ---
[facility] has started construction of its new state of the art ER which will open Spring 2026. With this, we anticipate parking may be a challenge for some our surgical patients and families. Parking spaces are limited but are available for all Surgical, obstetrics, and ER patients sharing this lot. If you arrive and find you are having a hard time finding a parking space, please note that we understand the challenges, please drive around the hospital and park near Hospital Entrance 1. When you enter this entrance, you can ask a volunteer to direct or take you back to the surgical waiting area to check in. We appreciate everyone?s understanding of these expected challenges while we build for your future. Report to the Outpatient Waiting Room, entrance under the green pavilion located off [address], at time _8:30 am on date __11/01/25 . Planned Procedure Time: __10:30 am .? Time changes happen often and if your time is changed the preop area will call you the afternoon before. - You and your visitor will be asked to self-screen and do not enter if you have any COVID symptoms. Please call surgeon if you need to reschedule. - A mask is optional within the hospital at this time. Patients may have clear liquids (water, carbonated beverages, clear teas, apple juice) until 3 hours prior to surgery( 7:30 am) with a maximum of 20 ounces. - No food from midnight until time of surgery and no smoking, or chewing tobacco (or any form of nicotine). No chewing gum, candy or mints. Take only the following medications with a SIP of water on the morning of surgery: NONE DO NOT STOP ANY OF YOUR OTHER PRESCRIPTION MEDICATIONS PRIOR TO SURGERY EXCEPT THE FOLLOWING Hold all vitamins and supplements for 3 days per anesthesiologist.LAST DOSE10/28/25 Medications to discontinue per physician ___NONE MAY CONTINUE ASPIRIN [address] CORNEJO DO NOT TAKE MORNING OF SURGERY Please no make-up, nail lao, hairspray, perfume, deodorant, or body powder the day of surgery.? No jewelry (including any body piercings) or valuables the day of surgery, leave them at home.? Please take a shower or bath the night before, or the morning of, surgery with an antibacterial soap.? Wear comfortable, loose fitting clothing.? Children are encouraged to wear pajamas. - Jewelry must be removed prior to entering the operating room.? Rings and piercings that are not removed may be cut off. - The hospital will not accept responsibility for valuables.? - Please leave all valuables, including medications, at home the day of surgery. If you are going home after surgery, a licensed otr flatbed company truck driver must drive you home.? - NO public transportation without another adult if you receive anesthesia. - We recommend that an adult stay with you for 24 hours following discharge. - We also recommend that you do not drive, make important decision, drink alcoholic beverages, or take any drugs that were not prescribed by your health care provider for at least 24 hours after your discharge time. Follow any additional instructions given to you from your surgeon. Telephone instructions given to ____PATIENT and asked if any additional questions and then verbalized understanding. Patient advised to call surgeon office or pre surgery nurse liaison [phone] if any additional questions.
[2025-10-25 08:33] VITALS: BMI 23.8
[2025-11-01] VITALS (11 sets, daily range): BP systolic 122–201; BP diastolic 48–105; PULSE 54–87; RESP 14–20; TEMP 36.6; O2SAT 97–100; BMI 24.3
--- NOTE | 2025-11-01 07:17 | WPDHPUPDATE1 ---
History and Physical Update Update Date/Time: 11/01/25 07:17 History and Physical has been reviewed, including an updated exam of the patient. There are NO changes in the patient's condition. Risks, benefits, and alternatives have been discussed and questions answered. Patient agrees to proceed with procedure.
[2025-11-01] MEDS: LACTATED RINGERS 1,000 ML 30 ML IV CONT ×2 (09:08→12:42)
[2025-11-01] MEDS: ACETAMINOPHEN 500 MG TABLET 1000 MG PO (09:08)
[2025-11-01 09:32] LABS: Amylase 90 U/L (30-110)
[2025-11-01] MEDS: KETOROLAC 15 MG/ML VIAL (*BKC) IV PUSH (10:08)
--- NOTE | 2025-11-01 11:27 | WPDANESEPPF ---
Anes - Initial Pre Proc Eval Procedure: Operation Date: 11/01/25 10:30 Proposed Procedures p Laparoscopic Cholecystectomy - Monica Escobar MD Date/Time: 11/01/25 11:27 Surgeon: Monica Escobar MD Pre Op Diagnosis: chronic calculus cholecystitis Patient Data Age: 69 Gender: F Height: 1.57 m Weight: 60.2 kg Last Vital Signs Temp 36.6 C 11/01/25 08:30 Pulse 85 11/01/25 08:30 Resp 16 11/01/25 08:30 BP 172/73 H 11/01/25 08:30 Pulse Ox 99 11/01/25 08:30 Allergies Allergy/AdvReac Type Severity Reaction Status Date / Time amitriptyline Allergy Unknown Unknown Verified 11/01/25 09:16 phenylephrine Allergy Unknown Unknown Verified 11/01/25 09:16 phenytoin Allergy Unknown Unknown Verified 11/01/25 09:16 pseudoephedrine Allergy Unknown Unknown Verified 11/01/25 09:16 baclofen AdvReac Unknown Dizziness Verified 11/01/25 09:46 indomethacin AdvReac Unknown Dizziness Verified 11/01/25 09:46 [id number] Reductase AdvReac Unknown Muscle Pain Verified 11/01/25 09:16 Inhibitor Home Medications ?Medication ?Instructions ?Recorded ?Confirmed ?Type aspirin 81 mg tablet,delayed 81 mg PO DAILY 08/10/21 11/01/25 History release calcium carbonate (Tums) 200 mg PO BID 08/10/21 11/01/25 History glucosam 750 mg-chondroi 100 1 tablet PO DAILY 08/10/21 11/01/25 History mg-hyalur 1.65 mg-CF borate 108 mg tablet ([employer] loratadine 10 mg tablet (Claritin) 10 mg PO DAILY 08/10/21 11/01/25 History multivitamin (Daily Multi-Vitamin 1 tablet PO DAILY 08/10/21 11/01/25 History tablet) omega-3 fatty acids 1,000 mg 1,000 mg PO DAILY 08/10/21 11/01/25 History capsule (Fish Oil Concentrate) vitamin E 200 unit capsule 200 unit PO DAILY 08/10/21 11/01/25 History calcium 315 mg (as 1 tablet PO DAILY 01/07/24 11/01/25 History citrate)-vitamin D3 6.25 mcg (250 unit) tablet (Citracal + Vitamin D Maximum) blood glucose control, normal #1 ea 04/06/25 10/27/25 Rx (OneTouch Ultra Control solution) lancets 30 gauge (OneTouch #100 ea 06/14/25 10/27/25 Rx UltraSoft 2 Lancet) sulindac 200 mg tablet See Rx Instructions .Route 06/14/25 11/01/25 Rx .COMPLEX #60 tabs ibandronate 150 mg tablet See Rx Instructions .Route 06/26/25 10/27/25 Rx .COMPLEX #3 tabs lancets 33 gauge (OneTouch Delica #100 ea 06/29/25 10/27/25 Rx Plus Lancet) omeprazole 20 mg capsule,delayed 20 mg PO DAILY #90 caps 07/18/25 10/27/25 Rx release blood sugar diagnostic (OneTouch #100 ea 09/13/25 10/27/25 Rx Verio test strips) blood-glucose sensor (FreeStyle #6 ea 09/15/25 10/27/25 Rx Bernard 3 Plus Sensor device) blood-glucose,spooling operator,cont #1 ea 09/15/25 10/27/25 Rx (FreeStyle Bernard 3 [place]) insulin glargine 100 unit/mL (3 15 unit (0.15 mL) subcut QAM 3 09/15/25 11/01/25 Rx mL) subcutaneous pen (Lantus months #15 mL Solostar U-100 Insulin) pen needle, diabetic 32 gauge x #400 ea 09/15/25 10/27/25 Rx 5/32 atorvastatin 20 mg tablet (Lipitor) 20 mg PO QHS 10/06/25 10/27/25 History ondansetron 4 mg disintegrating 4 mg PO Q8H PRN nausea and 10/11/25 10/27/25 Rx tablet vomiting #7 tabs simethicone 125 mg capsule 125 mg PO DAILY PRN abdominal 10/11/25 10/27/25 Rx distention #14 caps Laboratory Tests 11/01/25 11/01/25 11/01/25 08:59 09:00 10:20 POC Capillary Glucose 221 H mg/dl 194 H mg/dl (65-105) (65-105) Amylase 90 U/L (30-110) Patient hx anesthesia problems: none Family hx anesthesia problems: none Results Review: All pre-operative results and documents have been reviewed as part of the pre-operative evaluation. [facility] Past Medical History Medical History Type 2 diabetes mellitus treated with insulin History of basal cell cancer Type 2 diabetes mellitus without complications Bilateral hand pain Rheumatoid arthritis with rheumatoid factor of multiple sites without organ or systems involvement H/O gastroesophageal reflux (GERD) Arthritis Allergies Surgical History Surgical History History of thyroid surgery History of cataract surgery H/O breast biopsy History of back surgery History of facial surgery Family History Family History Father Heart problem Sibling Diabetes mellitus Cancer Grandparent Diabetes mellitus Heart problem Other Family history of cardiovascular disease Family history of rheumatoid arthritis Family history of seizure disorder Social History Social History Smoking status: Never smoker Alcohol intake: never Substance use: never Lack of Transportation: No Lack of Food: Never True Current Housing: I Have Housing Concerned About Future Housing: No Difficulty Paying Gas/Electric Bills: No Difficulty Paying for Meds: No Currently Unemployed: No Education: High School Diploma/GED Difficulty w/ Childcare or Family Care: No Living arrangements: alone Spiritual care concerns: No Anes - Eval Final PreProcedure Day of Procedure 11/01/25 11:27 Patient weight: normal Heart: regular rate and rhythm Lungs: normal air movement Airway: Mallampati scale class II Neurological: alert and oriented Last oral intake: >/= 8 hours ASA classification: III Emergent: no Anesthetic plan: proceed Anesthesia type and monitoring: general ETT and standard monitoring Results Review: All pre-operative results and documents have been reviewed as part of the pre-operative evaluation. Informed Consent: The patient's anesthetic plan and its attendant risks and benefits were discussed with the patient/family/POA. Questions were solicited and answers provided to the satisfaction of the patient/family/POA.
[2025-11-01] MEDS: BUPIVACAINE/EPINEPHRINE 0.5% 30 ML VIAL INFILTRATE (11:41)
[2025-11-01] MEDS: ceFAZolin 2 GM in SODIUM CHLORIDE 0.9% IV 50 ML 100 ML IVPB (11:41)
--- NOTE | 2025-11-01 12:03 | S_PTH ---
PATIENT: Dulce Mckeon LOC: [facility] U#:[id number] AGE/SX: 69/F ROOM: RE11/01/[address]: Monica Escobar MD : [id number] BED: DIS: 11/01/2025 SPEC #: [id number] RECD: 11/01/25 13:19 STATUS: PATTI REQ #: [id number] LISA: 11/01/25 12:[address]: Monica Escobar DEPT: [facility] Surgical RECD BY: Carol Ann Dupont ENTERED: 11/01/25 13:19 SP TYPE: Surgical OTHR DR: Yovany Jiménez MD Tissues: A - Gallbladder Procedures: Hematoxylin and Eosin Stain Gross and Microscopic Level 3
--- NOTE | 2025-11-01 12:55 | W.PM.PROC2 ---
Procedure Note - Detailed Date of Procedure 11/01/25 Pre-op Diagnosis chronic calculus cholecystitis Post-op Diagnosis Same Procedure Performed Laparoscopic cholecystectomy Surgeon Monica Escobar MD Anesthesia General Indications 69-year-old female presented to the office complaining of postprandial right upper quadrant abdominal pain associated with nausea and vomiting. Workup including imaging significant for cholecystitis, cholelithiasis. Findings Cholecystitis with cholelithiasis Description of Procedure The patient was taken to the operating room placed in the supine position. After adequate induction of general anesthesia, the patient was prepped and draped in normal sterile fashion. A time-out was then performed to verify the patient's identity as well as the procedure being performed. I then made a 5 mm incision in the infraumbilical region. Through this, a Veress needle was placed into the peritoneal cavity and CO2 gas was then insufflated. After adequate pneumoperitoneum was achieved, the Veress needle was removed and a 5 mm optiview trocar was placed through this incision under direct visualization. I then placed the laparoscope through this trocar site and under direct visualization placed a further 12 mm subxiphoid port as well as 2 additional 5 mm ports in the right upper abdomen. The gallbladder was then identified and was noted to be moderately inflamed, distended, and full of gallstones. I was able to place a grasper at the dome of the gallbladder and this was retracted anterior and cephalad up over the liver. A 2nd retractor was then placed at the infundibulum and retracted laterally, this allowed visualization of the triangle of Calot. I then was able to visualize the cystic duct in its entirety from its proximal insertion into the gallbladder, to its distal junction with the common hepatic/common bile duct junction. At this point, I carefully skeletonized the proximal cystic duct with the [place] dissector. I then clipped and transected the proximal cystic duct. Next I visualized the cystic artery. Again the artery was skeletonized, clipped, and transected. I then used the Bovie cautery to take down the peritoneal attachments of the gallbladder off the liver bed. This was somewhat difficult given the amount of inflammation in the posterior space. Once the gallbladder specimen was completely detached, an endo-pouch was placed through the 12 mm port site. I then placed the gallbladder specimen into the Endo pouch and removed the endo-pouch from the 12 mm port site. The specimen will now be sent to pathology for further review. I then copiously irrigated the right upper quadrant. Hemostasis was noted in the liver bed, the clips were noted to be in good position on both the cystic duct stump and the cystic artery stump. No other pathology was noted in the right upper quadrant. I then moved the laparoscope to the subxiphoid port. No iatrogenic injury or other pathology was noted in the lower abdomen. I then closed the 12 mm trocar site under direct visualization using the [place] cone and 0 Vicryl suture. At this point, the abdomen was desufflated and all ports removed. All port sites were then closed with 4.O Monocryl subcuticular sutures. Dermabond was placed on each incision. The patient tolerated the procedure well, was extubated in the operating room postoperative and will be transferred to the recovery room in stable condition Estimated Blood Loss 5 Drains No Packing No Pathology Yes Complications No immediate complications Condition Stable Disposition PACU [facility] Billing Surgery - Charge Forward: Surgery Billing
[2025-11-01] MEDS: oxyCODONE HCL (*CRX) 2.5 MG TAB IR PO (14:12)
== END 2025-11-01 15:25 | disposition home or self-care (01) ==
PROVIDERS: PCP Family Medicine Adolescent Medicine; Visit Provider Surgery
PROC: 0FT44ZZ Resection of Gallbladder, Percutaneous Endoscopic Approach (ICD-10-PCS; CPT 47562; principal; 2025-11-01 10:30)
DX: K80.10 Calculus of gallbladder with chronic cholecystitis without obstruction (principal); E11.9 Type 2 diabetes mellitus without complications
CPT/HCPCS: 47562; 36415; 82150; 82948; 88304; J0690; A9270; J0360; J1885; J2003; J2405; J2704; J3010; J7120